=== PATIENT | female | born 1985 | race Caucasian/White ===

== ENCOUNTER 2017-03-04 17:57 | Emergency (ER) | payer OTHER ==
[2017-03-04] MEDS ORDERED: LORAZEPAM 0.5 MG TABLET PO ONE (18:08)
[2017-03-04] MEDS ORDERED: LORAZEPAM 1 MG TABLET ONE (18:10)
[2017-03-04 19:08] LABS: APPEARANCE,URINE CLOUDY; BILIRUBIN,URINE NEGATIVE (NEGATIVE); GLUCOSE, URINE NEGATIVE (NEGATIVE); KETONES,URINE NEGATIVE (NEGATIVE); LEUKOCYTE ESTERASE,URINE TRACE (NEGATIVE); NITRITE,URINE NEGATIVE (NEGATIVE); PROTEIN,URINE NEGATIVE (NEGATIVE); URINE SPECIFIC GRAVITY 1.005; UROBILINOGEN,URINE NEGATIVE mg/dL (<2.0)
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
[2017-03-04 21:49] VITALS: BP 118/75
== END 2017-03-04 21:56 | disposition home or self-care (01) ==
LOC: ER 17:57
DX: S50.00XA Contusion of unspecified elbow, initial encounter (principal); S40.019A Contusion of unspecified shoulder, initial encounter; M25.521 Pain in right elbow; V49.40XA Driver injured in collision with unspecified motor vehicles in traffic accident, initial encounter; Y93.89 Activity, other specified; F41.9 Anxiety disorder, unspecified
CPT/HCPCS: 81001; 99283